=== PATIENT | male | born 1985 | race Caucasian/White ===

== ENCOUNTER 2020-07-12 00:57 | Emergency (ER) | payer OTHER ==
[2020-07-12] MEDS ORDERED: IBUPROFEN800 MG PO ×2 (03:42→03:51)
[2020-07-12] MEDS ORDERED: PERCOCET 5-3251 EACH PO ×2 (03:42→03:51)
== END 2020-07-12 03:54 | disposition home or self-care (01) ==
LOC: FER 00:57
DX: S70.11XA Contusion of right thigh, initial encounter (principal); M25.551 Pain in right hip; F17.200 Nicotine dependence, unspecified, uncomplicated; Z88.8 Allergy status to other drugs, medicaments and biological substances; W00.0XXA Fall on same level due to ice and snow, initial encounter; Y92.410 Unspecified street and highway as the place of occurrence of the external cause
CPT/HCPCS: 72170; 73552